=== PATIENT | female | born 1940 | race Caucasian/White ===

== ENCOUNTER 2018-08-01 11:35 | Emergency (ER) | payer OTHER ==
[2018-08-01 11:42] VITALS: BP 140/76; PULSE 67; TEMP 97.6; BMI 26.4
--- NOTE | 2018-08-01 11:45 | PDOC ---
Attending Attestation - Resident Resident Name: ParvizPravinArtemio - ED Attending Attestation I have performed the following: I have examined & evaluated the patient, The case was reviewed & discussed with the resident, I agree w/resident's findings & plan, Exceptions are as noted - HPI HPI: 08/01/18 13:24 78yo female presents ambulatory with her fam c/o L shoulder pain and a growth there and then also LLQ pain and a subjective fever that started yesterday. Pt states the L shoulder pain and the growth has been there for 3 months. Hx of RA - does not see a senior applications developer or take RA meds. Pt states she saw her PMD Dr. Melton who recommended PT, but the pain has worsened over the last week and the "cyst" is growing. Pt denies chills. No wt loss. FROM of the shoulder. Pt also c/o LLQ pain that started yesterday. Pt states constipation recently, which is new. States subjective fever yesterday. No n/v/d. NO dysuria. No cp/ sob. No neck or back pain. Pt denies all other complaints. - Physicial Exam PE: 08/01/18 13:28 Gen: aaox3, greenlandic speaking, nad heart: +s1s2 reg lungs: cta b/l abd: soft, ttp LLQ- no rebound or guarding, no cva ttp, nondistended ext: L distal clavicle with cyst to the bone, no drainage, no redness, no warmth , nonmobile, suspect subchrondral cyst/mucoid cyst, FROM of the arm, radial and pedal pulses intact - Medical Decision Making 08/01/18 11:45 I, Dr. Naomi Carney, DO, attest that this document has been prepared under my direction and personally reviewed by me in its entirety. I further attest, that it accurately reflects all work, treatment, procedures and medical decision -making performed by me. 08/01/18 13:45 a/p: 78yo female with L shoulder growth and LLQ pain -suspect cyst formation to the L shoulder -will obtain xrays -FROM of the shoulder, neurovasc intact -also with LLQ pain - concern for poss early colitis/diverticulitis vs constipation - will send labs, ct abd/pelvis -will monitor and reassess 08/01/18 15:43 acute uncomplicated sigmoid diverticulitis - will start po abx 08/01/18 16:06 degenerative changes on the xray ultrasound shows a complex cyst to L shoulder needs orthopedic follow up and poss further imaging of the shoulder/cyst 08/01/18 16:18 discussed imaging and need for follow up with the patient and her son. Answered all questions will give gi follow up as well as orthopedic follow up. stable for dc to home
--- NOTE | 2018-08-01 12:31 | PDOC ---
History of Present Illness - General Stated Complaint: LEFT SHOULDER "LUMP" Time Seen by Provider: 08/01/18 11:41 - History of Present Illness Initial Comments: 08/01/18 12:26 78 yo F with h/o asthma, HTN, HLD, arthritis who p/w left shoulder nodule, and LLQ abdominal pain x 1 day. Patient reports increasingly painful, and enlarging nodule on the left shoulder x 3-4 months. Pain not improved with OTC Motrin. Denies h/o similar presentation. Denies drainage, discharge, warmth, from affected site. Normal ROM of left shoulder.Also endorses 24 hours of dull LLQ pain with no identifiable triggers or alleviators. Endorses subjective fevers x 1 day. Denies abdominal trauma. Patient denies PRINGLE, vision change, palpitations, cough, wheezing, orthopena, PND , leg swelling/pain, N/V, F,C, CP, SOB, urinary complaints, hematuria, BPR, diarrhea, lightheadedness, weakness, sensory changes. PMHx: as noted above ROS: as noted Allergies: NKDA Past History - Past Medical History Allergies/Adverse Reactions: Allergies Allergy/AdvReac Type Severity Reaction Status Date / Time morphine Allergy Intermediate Rash Verified 08/01/18 11:37 Home Medications: Ambulatory Orders Esomeprazole Mag Trihydrate [Nexium] 40 mg PO DAILY 08/22/11 Rosuvastatin Calcium [Crestor] 10 mg PO DAILY 04/19/12 Acetaminophen [Tylenol] 325 mg PO TID PRN 12/09/14 Candesartan Cilexetil [Atacand -] 16 mg PO DAILY 12/09/14 Baclofen 10 mg PO DAILY 03/14/16 Ibuprofen 600 mg PO TID #30 tablet 03/14/16 Aspirin [Aspirin EC] 81 mg PO DAILY 08/01/18 Ciprofloxacin [Cipro (Restricted To Id)] 500 mg PO Q12H #20 tablet MDD 2 tab 10/15 metroNIDAZOLE [Flagyl -] 500 mg PO TID #30 tablet MDD 3 tab 08/01/18 COPD: No GI Disorders: Yes (GERD) HTN: Yes Hypercholesterolemia: Yes Other medical history: ARTHRITIS - Surgical History Appendectomy: Yes Cholecystectomy: Yes - Suicide/Smoking/Psychosocial Hx Smoking Status: No Smoking History: Never smoked Have you smoked in the past 12 months: No Number of Cigarettes Smoked Daily: 0 Information on smoking cessation initiated: No Hx Alcohol Use: No Drug/Substance Use Hx: No Substance Use Type: None Review of Systems - Review of Systems Comments:: 08/01/18 12:31 GENERAL/CONSTITUTIONAL: + Subjective fever and chills. No weakness. HEAD, EYES, EARS, NOSE AND THROAT: No change in vision. No ear pain or discharge. No sore throat. CARDIOVASCULAR: No chest pain or shortness of breath RESPIRATORY: No cough, wheezing, or hemoptysis. GASTROINTESTINAL: + Abdominal pain. No nausea, vomiting, diarrhea or constipation. GENITOURINARY: No dysuria, frequency, or change in urination. MUSCULOSKELETAL: + Left shoulder nodule. No neck or back pain. SKIN: No rash NEUROLOGIC: No headache, vertigo, loss of consciousness, or change in strength/ sensation. ENDOCRINE: No increased thirst. No abnormal weight change HEMATOLOGIC/LYMPHATIC: No anemia, easy bleeding, or history of blood clots. ALLERGIC/IMMUNOLOGIC: No hives or skin allergy. *Physical Exam - Vital Signs Last Vital Signs Temp Pulse Resp BP Pulse Ox 97.6 F 67 18 140/76 100 08/01/18 11:35 08/01/18 11:35 08/01/18 11:35 08/01/18 11:35 08/01/18 11:35 - Physical Exam Comments: 08/01/18 12:32 GENERAL: Awake, alert, and fully oriented, in no acute distress HEAD: No signs of trauma, normocephalic, atraumatic EYES: PERRLA, EOMI, sclera anicteric, conjunctiva clear ENT: Hearing grossly normal, nares patent, oropharynx clear without exudates. Moist mucosa NECK: Normal ROM, supple, no lymphadenopathy, JVD, or masses LUNGS: No distress, speaks full sentences, clear to auscultation bilaterally HEART: Regular rate and rhythm, normal S1 and S2, no murmurs, rubs or gallops, peripheral pulses normal and equal bilaterally. ABDOMEN: + LLQ ttp. NDS, Soft, normoactive bowel sounds. No guarding, no rebound. No masses EXTREMITIES : Normal inspection, Normal range of motion, no edema. No clubbing or cyanosis. Neg CVA ttp. NEUROLOGICAL: Cranial nerves II through XII grossly intact. Normal speech, normal gait, no focal sensorimotor deficits SKIN: + 3 x 3 cm left non fluctuant, non erythematous, non tender nodular lesion , medial to left bony acromion. Warm, Dry, normal turgor, no rashes noted Moderate Sedation - Procedure Monitoring Vital Signs: Procedure Monitoring Vital Signs Temperature 97.6 F 08/01/18 11:35 Pulse Rate 67 08/01/18 11:35 Respiratory Rate 18 08/01/18 11:35 Blood Pressure 140/76 08/01/18 11:35 O2 Sat by Pulse Oximetry (%) 100 08/01/18 11:35 ED Treatment Course - LABORATORY CBC & Chemistry Diagram: 08/01/18 13:30 08/01/18 13:30 - ADDITIONAL ORDERS Additional order review: 08/01/18 15:45 Toshia Francis Name: GISELA HAYNES DEPARTMENT OF RADIOLOGY Phys: Artemio Jj RESIDENT : 1940 Age: 78 Sex: F [facility] Acct: [id number] Loc: [address] Exam Date: 08/01/18 Status: REG ER [place] [address] Unit Number: [id number] EXAM#: TYPE/EXAM: RESULT: [id number] CT/ABDOMEN PELVIS CT WITH CONTR Abdomen and pelvis CT (with intravenous contrast) Clinical information left lower quadrant pain Multiplanar imaging was performed following the intravenous administration of nonionic contrast. Enteric contrast was not administered. Sigmoid diverticulosis is noted with associated wall thickening and pericolonic edema at the level of the mid to upper third consistent with acute diverticulitis. No abscess, extraluminal air, free intraperitoneal fluid or bowel obstruction is noted. Several hepatic cysts are seen. The spleen, pancreas, gallbladder, adrenal glands and kidneys demonstrate no discrete abnormality. In comparison to a prior CT exam of 01/23/2008 interval resolution of mild right perirenal soft tissue edema is noted. There is no aortic aneurysm. No definite lymphadenopathy is seen on the basis of CT size criteria. No gross noncontrast small bowel pathology is visualized. In comparison to contrast-enhanced CT of 12/16/2007 note is again made of stable 1.4 cm and 1 cm right ovarian cysts. The osseous structures demonstrate no obvious acute pathology. Marked multilevel lower lumbar degenerative disc changes. Stable subcentimeter right middle lobe pulmonary nodule. IMPRESSION: Acute uncomplicated sigmoid diverticulitis is seen. The site of involvement is similar to a prior CT study of 12/16/2007. Reported By: John Umana MD [id number] Artemio Jj Technologist: Michele Myers Transcribed Date/Time: 10/15 Filling Machine Set Up Mechanic: John Umana Printed Date/Time: By: 08/01/18 15:54 [facility] Name: GISELA HAYNES DEPARTMENT OF RADIOLOGY Phys: Artemio Jj RESIDENT : 1940 Age: 78 Sex: F [facility] Acct: [id number] Loc: [address] Exam Date: 08/01/18 Status: REG [place] [address] Unit Number: [id number] EXAM#: TYPE/EXAM: RESULT: [id number] US/SOFT TISSUE EXTREMITY US History provided: Palpable abnormality. Real-time examination of the left shoulder demonstrates the following: Attention was directed to a palpable abnormality anterior to the shoulder. There is a large complex, predominantly cystic subcutaneous mass which measures approximately 4.1 x 2.9 x 1.4 cm. The etiology of the mass is uncertain and facet additional imaging studies, such as an MRI or possibly a CT scan, are now recommended. IMPRESSION: Large complex, predominantly cystic subcutaneous mass anterior to the left shoulder. Clinical correlation and follow-up MRI recommended. Please see above discussion. - RADIOLOGY Radiology Studies Ordered: Category Date Time Status CLAVICLE-LEFT SIDE [RAD] Stat Radiology 08/01/18 12:21 Ordered SHOULDER-LEFT [RAD] Stat Radiology 08/01/18 12:21 Ordered Medical Decision Making - Medical Decision Making 08/01/18 12:31 78 yo F with h/o asthma, HTN, HLD, arthritis who p/w painful left shoulder nodulex 3 months, and LLQ abdominal pain x 1 day. + LLQ ttp. + 3 x 3 cm left non fluctuant, non erythematous, non tender nodular lesion, medial to left bony acromion.Possible diverticultiis, colitis, gastroenteritis, cystitis, nephrolithaisis. Although low suspciokn will consider AAA, Ao dissection, pyeloneprhitis. + Left shoulder nodule likely cystic in origin, possible 2/2 arthritic change. Ed Course: CTAP, LEFT SHOULDER RAD, LEFT SHOULDER U/S 08/01/18 12:32 EK08/01/18 12:51 Patient advised to f/u with rhemuatology for arthritis management. 08/01/18 15:45 CT AP: IMPRESSION: Acute uncomplicated sigmoid diverticulitis is seen. The site of involvement is similar to a prior CT study of 12/16/2007. Reported By: John Umana MD 08/01/18 153 Artemio Jj Technologist: Michele Myers Transcribed Date/Time: 08/01/181534 Filling Machine Set Up Mechanic: John Umana U/S: IMPRESSION: Large complex, predominantly cystic subcutaneous mass anterior to the left shoulder. Clinical correlation and follow-up MRI recommended. Please see above discussion. 08/01/18 16:08 X rays show degenerative changes. Advised to f/u with ortho Flagyl, Ciprofloxacin sent to pharmacy Patient stable for d/c with return precautions. *DC/Admit/Observation/Transfer Diagnosis at time of Disposition: LLQ abdominal pain - Discharge Dispostion Condition at time of disposition: Stable - Prescriptions Prescriptions: Ciprofloxacin [Cipro (Restricted To Id)] 500 mg PO Q12H #20 tablet MDD 2 tab metroNIDAZOLE [Flagyl -] 500 mg PO TID #30 tablet MDD 3 tab - Referrals Referrals: Ac Melton [Primary Care Provider] - Delfin Sims MD [Staff Physician] - Sekou Garcia MD [Staff Physician] - Michael Elliott MD [Staff Physician] - Alexander Magana DO [Staff Physician] - - Patient Instructions Printed Discharge Instructions: DI for Abdominal Pain-Adult Additional Instructions: Please return to the emergency department with any new or worsening symptoms or concerns. Please follow up with your primary care physician and audio production engineer within 72 hours or possible need for further CT scan or MRI imaging of nodule on shoulder. Please take Ciprofloxacin two times a day for 10 days and Flagyl three times a day for 10 days.Please follow up with gastroenterology within 72 hours. Please follow up with orthopedic physician for degenerative changes. - Post Discharge Activity - Attestations Physician Attestion: 08/01/18 12:52 I attest to the information provided in this note.
[2018-08-01] MEDS ORDERED: SODIUM CHLORIDE 0.9% 1000 ML INFUS.BAG IV ONE (13:46)
[2018-08-01 13:53] LABS: BASO % 2.5 % (0-2.0); EOS % 0.3 % (0-4.5); HEMOGLOBIN 12.7 GM/dl (10.7-15.3); LYMPH % 24.4 % (8-40); MCHC 32.6 g/dl (32.0-36.0); MEAN CELL VOLUME 92.1 fl (80-96); MEAN PLT VOLUME 8.8 fl (7.5-11.1); MONO % 5.8 % (3.8-10.2); PLATELET COUNT 244 K/MM3 (134-434); RBC 4.23 M/mm3 (3.60-5.2); RDW 15.3 % (11.6-15.6); WHITE BLOOD COUNT 8.4 K/mm3 (4.0-10.8)
[2018-08-01 14:00] LABS: PH,URINE 5.5 (4.5-8); URINE APPEARANCE Clear; URINE BILIRUBIN Negative (NEGATIVE); URINE COLOR Amber; URINE GLUCOSE (UA) Negative (NEGATIVE); URINE KETONE Negative (NEGATIVE); URINE LEUK ESTERASE Negative (NEGATIVE); URINE NITRITE Negative (NEGATIVE); URINE PROTEIN Negative (NEGATIVE); URINE UROBILINOGEN 0.2 (0.2-1.0)
[2018-08-01 14:13] LABS: ALBUMIN 3.5 g/dl (3.4-5.0); ALK PHOS 63 U/L (45-117); ANION GAP 11 MMOL/L (8-16); BILIRUBIN,TOTAL 0.6 mg/dl (0.2-1); BLOOD UREA NITROGEN 26 mg/dl (7-18); CALCIUM 8.7 mg/dl (8.5-10); CHLORIDE 100 mmol/L (98-107); CO2 26 mmol/L (21-32); CREATININE 0.9 mg/dl (0.55-1.3); GLUCOSE,RANDOM 113 mg/dl (74-106); POTASSIUM 3.9 mmol/L (3.5-5.1); SGOT/AST 22 U/L (15-37); SGPT/ALT 13 U/L (13-61); SODIUM 137 mmol/L (136-145); TOT PROT 7.4 g/dl (6.4-8.2)
[2018-08-01] MEDS ORDERED: metroNIDAZOLE 250 MG TABLET PO ONE (15:42)
[2018-08-01] MEDS ORDERED: CIPROFLOXACIN 500 MG TABLET (RESTRICTED TO ID) PO ONE (15:42)
[2018-08-01] MEDS ORDERED: metroNIDAZOLE 250 MG TABLET ONE (15:44)
[2018-08-01] MEDS ORDERED: CIPROFLOXACIN 250 MG TABLET (RESTRICTED TO ID) PO ONE (15:44)
== END 2018-08-01 16:15 | disposition home or self-care (01) ==
LOC: FER 11:35
PROC: 3E0337Z Introduction of Electrolytic and Water Balance Substance into Peripheral Vein, Percutaneous Approach (ICD-10-PCS; principal; 2018-08-01)
DX: R10.32 Left lower quadrant pain (principal); I10 Essential (primary) hypertension; E78.5 Hyperlipidemia, unspecified; J45.909 Unspecified asthma, uncomplicated
CPT/HCPCS: 36415; 73000-TC-LT-FY; 73030-TC-LT-FY; 74177-TC; 76882-TC-RT-FY; 80053; 81003; 85025; 99285-25; J7030

== ENCOUNTER 2019-04-05 20:10 | Inpatient (IN) | payer OTHER ==
--- NOTE | 2019-04-05 20:47 | PDOC ---
Documentation entered by Zhanna Fox SCRIBE, acting as scribe for Sydnie Charles MD. Sydnie Charles MD: This documentation has been prepared by the Ruddy graves Brenda, SCRIBE, under my direction and personally reviewed by me in its entirety. I confirm that the documentation accurately reflects all work , treatment, procedures, and medical decision making performed by me. History of Present Illness - General Chief Complaint: Back Pain Stated Complaint: LOWER BACK PAIN Time Seen by Provider: 04/05/19 20:20 History Source: Patient Exam Limitations: No Limitations - History of Present Illness Initial Comments: 04/05/19 20:38 The patient is an 79 year old female, with a significant PMH of HTN who presents to the emergency department with inability to walk and low back pain. As per son, on the bedside, the patient had a fall while in the [facility] 4 days ago. The son also notes that prior to the fall, the patient had been feeling weak, particularly in her legs. The son went to the [facility] to pick her up, and they arrived at the airport this evening and came straight to the ED, due to the patient being unable to walk. The patient denies chest pain, shortness of breath, headache and dizziness. Denies fever, chills, nausea, vomiting, diarrhea and constipation. Denies dysuria, frequency, urgency and hematuria. PAST MEDICAL HISTORY: HTN PAST SURGICAL HISTORY: Bilateral knee replacements FAMILY HISTORY: Mother had a stroke at 99 SOCIAL HISTORY: Pt lives with family. General: (+) Weakness. (+) Unable to ambulate. No fevers or chills,, no weight loss HEENT: No change in vision. No sore throat,. No ear pain CardioVascular: No chest pain or shortness of breath Respiratory:No cough, or wheezing. Gastrointestinal: no nausea, vomiting, diarrhea or constipation, No rectal bleeding Genitourinary: No dysuria, hematuria, or frequency Musculoskeletal: (+)Back pain. No joint or muscle swelling Neurologic: No headache, vertigo, dizziness or loss of consciousness Psychiatric: nor depression Skin: No rashes or easy bruising Endocrine: no increased thirst or abnormal weight change Allergic: no skin or latex allergy All other systems reviewed and normal General: Well-nourished well-developed individual, no acute distress HEENT: Throat: Normal, tonsils normal, no erythema or exudate Neck: Supple, no meningeal signs, no lymphadenopathy Eyes::Pupils equal reactive and round, extraocular motion intact Chest: Nontender to palpation Cardiac: S1-S2 normal, regular rate and rhythm, no murmurs rubs or gallops Respiratory: Lungs clear to auscultation bilateral Abdomen: Soft, nondistended, normal bowel sounds, nontender to palpation diffusely Back: There is tenderness on palpation of the mid to lower lumbar spine with bilateral paraspinal tenderness left greater than right Extremities: Warm, dry, no cyanosis, clubbing, or edema Skin: No rashes Neuro: Alert and oriented x3, NEURO: Mental Status: The patient is alert and oriented to person, place, and time with normal speech. Memory is normal and thought process is intact. Cranial Nerves II - XII is intact. Sensation: Sensation is intact bilaterally to pain and light touch. Two-point discrimination is intact. Motor: Good muscle tone. Strength is 5/5 bilaterally at the deltoid, biceps, triceps, lower extremities have bilateral weakness and patient unable to lift them off the bed or hold them up for more than a very brief time. If I lift them off the bed. Psych: Normal mood and affect 04/05/19 20:43 Assessment and plan: This is an 79-year-old female who is brought in by her family for evaluation. Patient was visiting [facility] when she fell 4 days ago post fall patient has been unable to ambulate secondary to pain and weakness. Patient is also complaining of new numbness to her bilateral lower extremities left greater than right. Patient's family flew to the [facility] picked her up and brought her straight from the airport to the ED. Work-up initiated including head CT, CBC, comp, UA, urine culture, EKG, chest x- ray, lumbar spine CT. It is uncertain as to whether the weakness in the lower extremities are due to a central cause or a peripheral cause from her fall. Past History - Past Medical History Allergies/Adverse Reactions: Allergies Allergy/AdvReac Type Severity Reaction Status Date / Time morphine Allergy Intermediate Rash Verified 08/01/18 11:37 Home Medications: Ambulatory Orders Acetaminophen [Tylenol] 325 mg PO TID PRN 12/09/14 Ibuprofen 600 mg PO TID PRN 04/05/19 COPD: No GI Disorders: Yes (GERD) HTN: Yes Hypercholesterolemia: Yes - Surgical History Appendectomy: Yes Cholecystectomy: Yes - Psycho Social/Smoking Cessation Hx Smoking Status: No Smoking History: Never smoked Have you smoked in the past 12 months: No Number of Cigarettes Smoked Daily: 0 Hx Alcohol Use: No Drug/Substance Use Hx: No Substance Use Type: None *Physical Exam - Vital Signs Last Vital Signs Temp Pulse Resp BP Pulse Ox 98.1 F 68 16 165/76 98 04/05/19 20:11 04/05/19 20:11 04/05/19 20:11 04/05/19 20:11 04/05/19 20:11 ED Treatment Course - LABORATORY CBC & Chemistry Diagram: 04/05/19 20:50 04/05/19 20:50 - RADIOLOGY Radiology Studies Ordered: Category Date Time Status HEAD CT WITHOUT CONTRAST [CT] Stat CT Scan 04/05/19 20:[address] W/O CONTRAST [CT] Stat CT Scan 04/05/19 20:39 Ordered CHEST X-RAY PORTABLE* [RAD] Stat Radiology 04/05/19 20:39 Ordered Discharge - Discharge Information Problems reviewed: Yes Clinical Impression/Diagnosis: Weakness generalized, Unable to ambulate Condition: Stable - Admission Yes - Follow up/Referral Referrals: Ac Melton [Primary Care Provider] - - Patient Discharge Instructions - Post Discharge Activity
[2019-04-05 21:11] LABS: BASO % 0.6 % (0-2.0); EOS % 1.9 % (0-4.5); HEMATOCRIT 40.7 % (32.4-45.2); LYMPH % 43.6 % (8-40); MCH 30.6 pg (25.7-33.7); MCHC 31.9 g/dl (32.0-36.0); MEAN PLT VOLUME 9.6 fl (7.5-11.1); MONO % 5.9 % (3.8-10.2); PLATELET COUNT 213 K/MM3 (134-434); RBC 4.24 M/mm3 (3.60-5.2); RDW 15.7 % (11.6-15.6); WHITE BLOOD COUNT 5.9 K/mm3 (4.0-10.8)
[2019-04-05 21:17] LABS: BILIRUBIN,TOTAL 0.6 mg/dl (0.2-1); CALCIUM 9.4 mg/dl (8.5-10); CREATININE 1.1 mg/dl (0.55-1.3); POTASSIUM 4.4 mmol/L (3.5-5.1); TOT PROT 7.8 g/dl (6.4-8.2)
[2019-04-06 00:50] VITALS: BMI 27.6
[2019-04-06] MEDS ORDERED: ACETAMINOPHEN 325 MG TABLET (FP) PO PRN (02:21)
[2019-04-06] MEDS ORDERED: SODIUM CHLORIDE 1,000 ML IV SCH (02:30)
[2019-04-06 07:59] LABS: HEMATOCRIT 37.4 % (32.4-45.2); HEMOGLOBIN 12.2 GM/dl (10.7-15.3); MCH 29.9 pg (25.7-33.7); MCHC 32.5 g/dl (32.0-36.0); MEAN CELL VOLUME 91.9 fl (80-96); MEAN PLT VOLUME 9.8 fl (7.5-11.1); PLATELET COUNT 231 K/MM3 (134-434); RBC 4.07 M/mm3 (3.60-5.2); RDW 14.6 % (11.6-15.6); WHITE BLOOD COUNT 5.7 K/mm3 (4.0-10.8)
[2019-04-06 08:19] LABS: CALCIUM 9.3 mg/dl (8.5-10); CREATININE 0.9 mg/dl (0.55-1.3); POTASSIUM 5.5 mmol/L (3.5-5.1)
--- NOTE | 2019-04-06 09:22 | HP ---
CHIEF COMPLAINT: Unable to walk x 2 weeks PCP: Dr. Ac Melton, [place] HISTORY OF PRESENT ILLNESS: 79 year-old female with a PMH significant for HTN, HLD, arthritis, and GERD. Patient presented to the ED last evening for evaluation of inability to walk. At the time of this admission, patient relates that two weeks ago she went to bed in her usual state of health, and when she awoke the next morning she was unable to walk due to weakness in both legs, and she has been unable to walk since that time. No other focal deficits reported. She did not seek medical care in the . She flew to [place] yesterday and came to the ED for evaluation. Patient denies fever, sweats, chills, recent illness. Denies headache, dizziness , visual or speech changes. Recent Travel: From [facility] on 04/05/19 PAST MEDICAL HISTORY: Hypertension Hyperlipidemia Arthritis GERD PAST SURGICAL HISTORY: Bilateral total knee replacements Appendectomy Social History: , lives in [facility] and stays with son when in [place] Smoking: never Alcohol: no Drugs: no Family history: non-contributory Allergies morphine Allergy (Intermediate, Verified 08/01/18 11:37) Rash HOME MEDICATIONS: Home Medications Medication Instructions Recorded Acetaminophen [Tylenol] 325 mg PO TID PRN 12/09/14 Ibuprofen 600 mg PO TID PRN 04/05/19 REVIEW OF SYSTEMS CONSTITUTIONAL: Absent: fever, chills, diaphoresis, generalized weakness, malaise, loss of appetite, weight change HEENT: Absent: rhinorrhea, nasal congestion, throat pain, throat swelling, difficulty swallowing, mouth swelling, ear pain, eye pain, visual changes CARDIOVASCULAR: Absent: chest pain, syncope, palpitations, irregular heart rate, lightheadedness , peripheral edema RESPIRATORY: Absent: cough, shortness of breath, dyspnea with exertion, orthopnea, wheezing, stridor, hemoptysis GASTROINTESTINAL: Absent: abdominal pain, abdominal distension, nausea, vomiting, diarrhea, constipation, melena, hematochezia GENITOURINARY: Absent: dysuria, frequency, urgency, hesitancy, hematuria, flank pain, genital pain MUSCULOSKELETAL: Absent: myalgia, arthralgia, joint swelling, back pain, neck pain SKIN: Absent: rash, itching, pallor HEMATOLOGIC/IMMUNOLOGIC: Absent: easy bleeding, easy bruising, lymphadenopathy, frequent infections ENDOCRINE: Absent: unexplained weight gain, unexplained weight loss, heat intolerance, cold intolerance NEUROLOGIC: +bilateral lower extremity weakness, inability to walk Absent: headache, focal weakness or paresthesias, dizziness, unsteady gait, seizure, mental status changes, bladder or bowel incontinence PSYCHIATRIC: Absent: anxiety, depression, suicidal or homicidal ideation, hallucinations. PHYSICAL EXAMINATION Vital Signs - 24 hr 04/05/19 04/06/19 04/06/19 20:11 00:19 00:36 Temperature 98.1 F 97.8 F 97.8 F Pulse Rate 68 71 71 Respiratory 16 19 19 Rate Blood Pressure 165/76 174/63 H 174/63 H O2 Sat by Pulse 98 96 Oximetry (%) GENERAL: Awake, alert, and fully oriented, in no acute distress. LUNGS: Breath sounds equal, clear to auscultation bilaterally. No wheezes, and no crackles. No accessory muscle use. HEART: Regular rate and rhythm, normal S1 and S2 ABDOMEN: Soft, nontender, not distended UPPER EXTREMITIES: 2+ pulses, warm, well-perfused. No cyanosis. No clubbing. No peripheral edema. LOWER EXTREMITIES: 2+ pulses, warm, well-perfused. No calf tenderness. No peripheral edema. NEUROLOGICAL: Cranial nerves II-XII intact. Normal speech. Laboratory Results - last 24 hr 04/05/19 04/05/19 04/05/19 20:30 20:50 20:50 WBC RBC Hgb Hct MCV MCH MCHC RDW Plt Count MPV Absolute Neuts (auto) Neutrophils % Lymphocytes % Monocytes % Eosinophils % Basophils % Sodium 137 Potassium 4.4 Chloride 105 Carbon Dioxide 21 Anion Gap 11 BUN 36.0 H Creatinine 1.1 Est GFR (CKD-EPI)AfAm 54.53 Est GFR (CKD-EPI)NonAf 47.05 Random Glucose 93 Calcium 9.4 Total Bilirubin 0.6 AST 29 ALT 21 Alkaline Phosphatase 69 Creatine Kinase 178 Creatine Kinase Index 1.1 CK-MB (CK-2) 2.0 Troponin I < 0.03 Total Protein 7.8 Albumin 4.0 Urine Color Yellow Urine Appearance Clear Urine pH 5.5 Urine Protein Negative Urine Glucose (UA) Negative Urine Ketones Negative Urine Blood Negative Urine Nitrite Negative Urine Bilirubin Negative Urine Urobilinogen 0.2 Ur Leukocyte Esterase Negative 04/05/19 04/06/19 04/06/19 20:50 07:21 07:21 WBC 5.9 5.7 RBC 4.24 4.07 Hgb 13.0 12.2 Hct 40.7 37.4 MCV 96.0 91.9 MCH 30.6 29.9 MCHC 31.9 L 32.5 RDW 15.7 H 14.6 Plt Count 213 231 MPV 9.6 9.8 Absolute Neuts (auto) 2.9 Neutrophils % 48.0 Lymphocytes % 43.6 H Monocytes % 5.9 Eosinophils % 1.9 Basophils % 0.6 Sodium 140 Potassium 5.5 H Chloride 107 Carbon Dioxide 25 Anion Gap 8 BUN 29.0 H Creatinine 0.9 Est GFR (CKD-EPI)AfAm 69.50 Est GFR (CKD-EPI)NonAf 59.96 Random Glucose 104 Calcium 9.3 Total Bilirubin AST ALT Alkaline Phosphatase Creatine Kinase Creatine Kinase Index CK-MB (CK-2) Troponin I Total Protein Albumin Urine Color Urine Appearance Urine pH Urine Protein Urine Glucose (UA) Urine Ketones Urine Blood Urine Nitrite Urine Bilirubin Urine Urobilinogen Ur Leukocyte Esterase ASSESSMENT/PLAN: 79 year-old female with a PMH significant for HTN, HLD, DJD, and GERD. Admitted for lower extremity weakness. Lower extremity weakness Degenerative joint disease --nonfocal exam --CT LS: chronic findings-->moderate L2-L3, moderate to marked L3-L4, L4-L5 central canal stenosis; moderate to marked bilateral foraminal stenoses L2-S1; possible small left paramedial L4-L5 disc herniation; healed L5 pedicle fracture --ambulated 50 feet with walker with PT --needs outpatient ortho followup, probably MRI Hypertension --BP stable --continue home Bystolic Hyperlipidemia --not on statin therapy GERD FEN Fluids: PO intake adequate Electrolytes: replete as indicatd Nutrition: low sodium DVT prophylaxis: subq heparin Physical therapy Dispo: continues to require inpatient care. Full code. Visit type - Emergency Visit Emergency Visit: Yes ED Registration Date: 04/05/19 Care time: The patient presented to the Emergency Department on the above date and was hospitalized for further evaluation of their emergent condition. - New Patient This patient is new to me today: Yes Date on this admission: 04/06/19 - Critical Care Critical Care patient: No
[2019-04-06] MEDS ORDERED: POLYETHYLENE GLYCOL 3350 119 GM BTL PO SCH (10:00)
[2019-04-06] MEDS ORDERED: HEPARIN NA (PORCINE) 5,000 UNITS/ML 1ML VIAL SQ SCH (10:00)
--- NOTE | 2019-04-06 13:19 | EKG ---
Test Reason : Blood Pressure : / mmHG Vent. Rate : 077 BPM Atrial Rate : 077 BPM P-R Int : 192 ms QRS Dur : 082 ms QT Int : 378 ms P-R-T Axes : 042 -15 006 degrees QTc Int : 427 ms NORMAL SINUS RHYTHM POSSIBLE LEFT ATRIAL ENLARGEMENT LEFT VENTRICULAR HYPERTROPHY ABNORMAL ECG NO PREVIOUS ECGS AVAILABLE Confirmed by RANDA RIDDLE, ROSALINE ([id number]) on 04/06/2019 1:18:56 PM Referred By: SANYA MENDOZA Confirmed By:ROSALINE TOLENTINO MD
[2019-04-06 14:32] VITALS: TEMP 97.9
[2019-04-06] MEDS ORDERED: NEBIVOLOL 5 MG TABLET (FP) PO SCH (15:30)
[2019-04-06 15:37] VITALS: BP 137/56; PULSE 67
== END 2019-04-06 17:40 | disposition home or self-care (01) | DRG 552 ==
LOC: FER 20:10 → FM/S 23:58 → UNDOADMIN 04-06 00:19
PROVIDERS: ADMIT Internal Medicine; ATTEND Nurse Practitioner Acute Care
DX: M51.26 Other intervertebral disc displacement, lumbar region (principal); M48.061 Spinal stenosis, lumbar region without neurogenic claudication; I10 Essential (primary) hypertension; E78.5 Hyperlipidemia, unspecified; K21.9 Gastro-esophageal reflux disease without esophagitis
CPT/HCPCS: 36415; 70450-TC; 71045-TC-FY; 72131-TC; 80048; 80053; 81003; 82550; 82553; 84484; 85025; 85027; 87086; 87186; 93005; 97116-GP; 97162-GP; 99283-25; J1644; J7030

== ENCOUNTER 2020-09-22 09:11 | Emergency (ER) | payer OTHER ==
[2020-09-22 09:43] VITALS: BP 175/72; PULSE 69; TEMP 98; BMI 27.0
== END 2020-09-22 11:17 | disposition home or self-care (01) ==
LOC: FER 09:11
DX: R05 Cough (principal); J40 Bronchitis, not specified as acute or chronic
CPT/HCPCS: 71046-TC-FY; 93005; 99284-25

== ENCOUNTER 2022-02-15 11:19 | Emergency (ER) | payer OTHER ==
[2022-02-15 11:41] VITALS: BP 131/85; PULSE 102; RESP 18; TEMP 99.5; BMI 27.0
[2022-02-15] MEDS ORDERED: LIDOCAINE 5% TOPICAL PATCH TP ONE (11:43)
[2022-02-15] MEDS ORDERED: CYCLOBENZAPRINE HCL 10 MG TABLET (FP) PO ONE (11:43)
[2022-02-15] MEDS ORDERED: IBUPROFEN 400 MG TABLET (FP) PO ONE ×2 (11:43→11:54)
[2022-02-15] MEDS ORDERED: LIDOCAINE 5% TOPICAL PATCH ONE (11:55)
[2022-02-15] MEDS ORDERED: CYCLOBENZAPRINE HCL 5 MG TABLET ONE (11:55)
[2022-02-15] MEDS ORDERED: LIDOCAINE PATCH REMOVAL MC SCH (22:00)
== END 2022-02-15 14:38 | disposition home or self-care (01) ==
LOC: FER 11:19
DX: S39.012A Strain of muscle, fascia and tendon of lower back, initial encounter (principal); W01.0XXA Fall on same level from slipping, tripping and stumbling without subsequent striking against object, initial encounter
CPT/HCPCS: 72131-TC; 73521-TC-FY; 99285-25

== ENCOUNTER 2022-07-22 12:39 | Emergency (ER) | payer OTHER ==
[2022-07-22 12:46] VITALS: BP 145/83; PULSE 70; RESP 18; TEMP 98; BMI 27.3
== END 2022-07-22 14:40 | disposition home or self-care (01) ==
LOC: FER 12:39
DX: M54.50 Low back pain, unspecified (principal)
CPT/HCPCS: 99283-25